=== PATIENT | male | born 1990 | race Caucasian/White ===

== ENCOUNTER 2022-10-24 13:22 | Outpatient (CLI) | payer BC, SELFPAY ==
[2022-10-24 21:42] LABS: Cholesterol* 207 mg/dL (90-199); Glucose* 87 mg/dL (60-115); Triglycerides* 62 mg/dL (40-149)
[2022-10-24 21:43] LABS: HDL Cholesterol* 61 mg/dL (>=40); LDL Cholesterol Calculated 134 mg/dL (<100)
== END 2022-10-24 13:23 | disposition home or self-care (01) ==
PROVIDERS: PCP Emergency Medicine; Visit Provider Emergency Medicine
DX: Z13.1 Encounter for screening for diabetes mellitus (principal); Z13.6 Encounter for screening for cardiovascular disorders
CPT/HCPCS: 80061; 82947

== ENCOUNTER 2024-01-06 10:00 | Outpatient (REF) | payer BC, SELFPAY | END 2024-01-06 10:01 | disposition home or self-care (01) | LOC: NFLDREF 10:00 | PROVIDERS: PCP Emergency Medicine; Referring Provider Emergency Medicine; Visit Provider Emergency Medicine | DX: E78.5 Hyperlipidemia, unspecified (principal); Z13.228 Encounter for screening for other metabolic disorders | CPT/HCPCS: 80048; 80061 ==

== ENCOUNTER 2025-01-14 10:49 | Outpatient (CLI) | payer BC, SELFPAY | END 2025-01-14 10:50 | disposition home or self-care (01) | PROVIDERS: PCP Emergency Medicine; Visit Provider Nurse Practitioner Family | DX: E78.5 Hyperlipidemia, unspecified (principal); R03.0 Elevated blood-pressure reading, without diagnosis of hypertension | CPT/HCPCS: 80053; 80061 ==